=== PATIENT | male | born 2000 | race American Indian/Alaskan Native ===

== ENCOUNTER 2020-12-15 17:48 | Emergency (ER) | payer SELFPAY ==
[2020-12-15 19:30] VITALS: BP 121/75
--- NOTE | 2020-12-15 20:14 | Emergency Department Report ---
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 No numbness, no tingling, no s welling noted -: Gradual Severity: mild, moderate Quality: dull, aching Consistency: constant Improves With: nothing Worsens With: nothing Associated Symptoms: denies other symptoms - Related Data Previous Rx's Medication Instructions Recorded Last Taken Type Ketorolac [Toradol] 10 mg PO Q6H PRN #14 tablet 12/15/20 Unknown Rx methOCARBAMOL [Robaxin TAB] 750 mg PO Q8H PRN #20 tablet 12/15/20 Unknown Rx Allergies Allergy/AdvReac Type Severity Reaction Status Date / Time No Known Allergies Allergy Verified 12/15/20 18:50 ED Review of Systems ROS: Stated complaint: LT SHOULDER PAIN Other details as noted in HPI Comment: All other systems reviewed and negative ED Past Medical Hx - Social History Smoking Status: Current Some Day Smoker Substance Use Type: None - Medications Home Medications: Home Medications Medication Instructions Recorded Confirmed Last Taken Type Ketorolac [Toradol] 10 mg PO Q6H PRN #14 tablet 12/15/20 Unknown Rx methOCARBAMOL [Robaxin TAB] 750 mg PO Q8H PRN #20 tablet 12/15/20 Unknown Rx ED Physical Exam - General Limitations: No Limitations General appearance: alert, in no apparent distress - Head Head exam: Present: atraumatic, normocephalic - Eye Eye exam: Present: normal appearance Pupils: Present: unequal - ENT ENT exam: Present: mucous membranes moist - Neck Neck exam: Present: normal inspection - Respiratory Respiratory exam: Present: normal lung sounds bilaterally. Absent: respiratory distress - Cardiovascular Cardiovascular Exam: Present: regular rate, normal rhythm. Absent: systolic murmur, diastolic murmur, rubs, gallop - GI/Abdominal GI/Abdominal exam: Present: soft, normal bowel sounds - Rectal Rectal exam: Present: deferred - Extremities Exam Extremities exam: Present: normal inspection, tenderness (To left shoulder with palpation. Pain with [facility] [facility]'s test and Neer's test. No deformity no sulcus sign.) - Back Exam Back exam: Present: normal inspection, full ROM - Neurological Exam Neurological exam: Present: alert, oriented X3 - Psychiatric Psychiatric exam: Present: normal affect, normal mood - Skin Skin exam: Present: warm, dry, intact, normal color. Absent: rash, diaphoretic, erythema, petechiae, pallor, abrasion ED Course Vital Signs 12/15/20 12/15/20 12/15/20 18:48 19:24 19:28 Temperature 98.2 F 98.2 F Pulse Rate 65 80 Respiratory 14 14 Rate Blood Pressure 129/60 121/75 [Left] O2 Sat by Pulse 99 99 99 Oximetry Critical care attestation.: If time is entered above; I have spent that time in minutes in the direct care of this critically ill patient, excluding procedure time. ED Disposition Clinical Impression: Bursitis and tendinitis of shoulder region Disposition: HOME / SELF CARE / HOMELESS Is pt being admited?: No Does the pt Need Aspirin: No Condition: Stable Instructions: Shoulder Sprain, How to Use Cold Therapy, Bursitis, [id number], Bursitis, Elastic Bandage and RICE Therapy Prescriptions: methOCARBAMOL [Robaxin TAB] 750 mg PO Q8H PRN #20 tablet PRN Reason: Pain , Severe (7-10) Ketorolac [Toradol] 10 mg PO Q6H PRN #14 tablet PRN Reason: Pain Referrals: MICKY GRAVES MD [Staff Physician] - 3-5 Days
== END 2020-12-15 21:08 | disposition home or self-care (01) ==
LOC: ED 17:48
DX: M75.52 Bursitis of left shoulder (principal); M70.812 Other soft tissue disorders related to use, overuse and pressure, left shoulder; F17.200 Nicotine dependence, unspecified, uncomplicated; Y93.89 Activity, other specified
CPT/HCPCS: 99282